=== PATIENT | female | born 1980 | race Caucasian/White ===

== ENCOUNTER 2016-06-10 23:23 | Emergency (ER) | payer OTHER ==
[2016-06-10 23:37] VITALS: BMI 22.5
[2016-06-10 23:41] VITALS: BP 132/80; PULSE 64; TEMP 99.7
--- NOTE | 2016-06-11 00:10 | ED PDOC ---
Arrival/HPI - General Chief Complaint: Cough, Cold, Congestion Time Seen by Provider: 06/10/16 23:43 Historian: Patient - History of Present Illness Narrative History of Present Illness (Text): 06/11/16 00:21 Patient reports 2 days of fever, chills, and bodyaches, states that he daughter is also sick with similar symptoms. Otherwise: (-) cough, (-) sore throat, (-) SOB, (-) chest pain, (-) N/V/D, (-) abdominal pain, (-) flank pain, (-) urinary symptoms, (-) recent travel, (-) sick contacts. PMD none Past Medical History - Provider Review Nursing Documentation Reviewed: Yes - Psychiatric Hx Substance Use: No Family/Social History - Physician Review Nursing Documentation Reviewed: Yes Family/Social History: No Known Family HX Smoking Status: no Hx Alcohol Use: No Hx Substance Use: No Allergies/Home Meds Allergies/Adverse Reactions: Allergies No Known Allergies Allergy (Verified 06/10/16 23:41) Review of Systems - Review of Systems Constitutional: Normal, Fatigue, Fevers. absent: Weight Change ENT: Normal. absent: Hearing Changes, Tinnitus, Rhinorrhea, Sinus Congestion Respiratory: Normal. absent: SOB, Cough Cardiovascular: Normal. absent: Chest Pain, Palpitations Gastrointestinal: absent: Normal, Abdominal Pain, Stool Changes Musculoskeletal: absent: Normal, Arthralgias, Back Pain, Neck Pain Physical Exam - Physical Exam Narrative Physical Exam (Text): 06/11/16 00:22 GENERAL APPEARANCE: Patient is awake, alert, oriented x 3, in no acute distress. SKIN: Warm, dry; (-) cyanosis, (-) rash. (-) Decubitus Ulcer EYES: (-) conjunctival pallor, (-) scleral icterus, (-) conjunctival hemorrhage. ENMT: Mucous membranes moist. TMs: (-) erythema. Airway patent: (-) stridor. Pharynx: (-) erythema, (-) exudate. NECK: (-) tenderness, (-) stiffness, (-) meningismus, (-) lymphadenopathy. CHEST AND RESPIRATORY: (-) accessory muscle use. Lungs: (-) rales, (-) rhonchi, (-) wheezes, (-) rub; breath sounds equal bilaterally. HEART AND CARDIOVASCULAR: (-) irregularity; (-) murmur, (-) gallop, (-) rub. ABDOMEN AND GI: Soft; (-) tenderness, (-) guarding; (-) organomegaly; (-) mass ; (-) CVA tenderness. EXTREMITIES: (-) deformity; (-) cellulitis, (-) lymphangitis; (-) subungual hemorrhage; (-) edema. NEURO AND PSYCH: Mental status as above; (-) focal findings. Vital Signs Temp Pulse Resp BP Pulse Ox 06/10/16 23:45 99.7 F H 64 18 132/80 99 06/10/16 23:37 99.7 F H 64 18 132/80 99 Medical Decision Making ED Course and Treatment: 06/11/16 00:06 35 yo F presents with 2 day h/o fever, chills and bodyaches, likely flu. Given tylenol po. Based on history and exam, plan will be for outpatient f/u with the clinic. Rx provided. Patient states she fully agrees with and understands discharge instructions. States that she agrees with the plan and disposition. Verbalized and repeated discharge instructions and plan. I have given the patient opportunity to ask any additional questions. Follow up with the clinic in 1-2 days without fail. Advised to take medication as prescribed. Return to the emergency room at any time for any new or worsening symptoms. - Medication Orders Current Medication Orders: Discontinued Medications Acetaminophen (Tylenol 325mg Tab) 975 mg PO STAT STA Stop: 06/11/16 00:12 - PA / SPECIAL CLASS WELDER / Resident Statement MD/DO has reviewed & agrees with the documentation as recorded. Disposition/Present on Arrival - Present on Arrival Any Indicators Present on Arrival: No History of DVT/PE: No History of Uncontrolled Diabetes: No Urinary Catheter: No History of Decub. Ulcer: No History Surgical Site Infection Following: None - Disposition Have Diagnosis and Disposition been Completed?: Yes Diagnosis: Viral illness Disposition: HOME/ ROUTINE Disposition Time: 00:08 Patient Plan: Discharge Condition: STABLE Discharge Instructions (ExitCare): Viral Syndrome (ED), Influenza (ED) Print Language: MALTESE Additional Instructions: Thank you for letting us take care of you today. You were treated for viral illness, likely flu. The emergency medical care you received today was directed at your acute symptoms. If you were prescribed any medication, please fill it and take as directed. It may take several days for your symptoms to resolve. Return to the Emergency Department if your symptoms worsen, do not improve, or if you have any other problems. Please contact the clinic in 2 days for re-evaluation and follow up. Bring any paperwork you were given at discharge with you along with any medications you are taking to your follow up visit. Our treatment cannot replace ongoing medical care by a primary care provider (PCP) outside of the emergency department. Thank you for allowing the [facility] team to be part of your care today. Prescriptions: Ibuprofen [Motrin Tab] 600 mg PO QID PRN #20 tab PRN Reason: Fever >100.4 F Referrals[place] [facility] [place] - Follow up with primary Forms: WORK NOTE
[2016-06-11 00:39] VITALS: RESP 16; O2SAT 98
== END 2016-06-11 00:11 | disposition home or self-care (01) ==
LOC: ED 23:23
DX: B34.9 Viral infection, unspecified (principal)

== ENCOUNTER 2016-08-21 10:36 | Emergency (ER) | payer OTHER ==
[2016-08-21 10:37] VITALS: BMI 22.5
[2016-08-21 10:51] VITALS: RESP 16; TEMP 98.9; O2SAT 98
[2016-08-21 12:16] LABS: PH,URINE 6.5 (4.7-8.0); URINE BILIRUBIN NEGATIVE (NEGATIVE); URINE BLOOD TRACE-LYSED (NEGATIVE); URINE GLUCOSE (UA) NEGATIVE (NEGATIVE); URINE KETONE NEGATIVE (NEGATIVE); URINE LEUKOCYTE ESTERASE SMALL Leu/uL (NEGATIVE); URINE PROTEIN NEGATIVE mg/dL (<30 mg/dL); URINE UROBILINOGEN 0.2 E.U./dL (<1 E.U./dL)
[2016-08-21 12:17] LABS: URINE APPEARANCE CLEAR (CLEAR); URINE COLOR YELLOW (YELLOW)
[2016-08-21 12:28] LABS: URINE BACTERIA SMALL (NEG); URINE RBC 0 - 2 /hpf (0-2)
--- NOTE | 2016-08-21 12:33 | ED PDOC ---
Arrival/HPI - General Chief Complaint: Fever Time Seen by Provider: 08/21/16 11:27 Historian: Patient - History of Present Illness Narrative History of Present Illness (Text): 08/21/16 12:30 35yo female with PMHx of hypertension present with complaint of malaise, generalized body ache and fever. she notes tactile fever. Did not take any medication. Denies any focal somatic complaint. Denies abdominal pain, nausea, vomiting, diarrhea, urinary symptoms, URI symptoms, any other complaint. Past Medical History - Provider Review Nursing Documentation Reviewed: Yes - Psychiatric Hx Psychophysiologic Disorder: No Hx Substance Use: No Family/Social History - Physician Review Nursing Documentation Reviewed: Yes Family/Social History: Unknown Family HX Smoking Status: Never Smoked Hx Alcohol Use: No Hx Substance Use: No Allergies/Home Meds Allergies/Adverse Reactions: Allergies No Known Allergies Allergy (Verified 08/21/16 10:46) Review of Systems - Physician Review All systems were reviewed & negative as marked: Yes - Review of Systems Constitutional: Fatigue Eyes: Normal ENT: Normal Respiratory: Normal Cardiovascular: Normal Gastrointestinal: Normal Genitourinary Female: Normal Musculoskeletal: Myalgias Skin: Normal Neurological: Normal Endocrine: Normal Hemo/Lymphatic: Normal Psychiatric: Normal Physical Exam Vital Signs Reviewed: Yes Vital Signs Temp Pulse Resp BP Pulse Ox 08/21/16 10:46 98.9 F 102 H 16 143/104 H 98 Temperature: Afebrile Blood Pressure: Normal Pulse: Regular Respiratory Rate: Normal Appearance: Positive for: Well-Appearing, Non-Toxic, Comfortable Pain Distress: None Mental Status: Positive for: Alert and Oriented X 3 - Systems Exam Head: Present: Atraumatic, Normocephalic Pupils: Present: PERRL Extroacular Muscles: Present: EOMI Conjunctiva: Present: Normal Mouth: Present: Moist Mucous Membranes Neck: Present: Normal Range of Motion Respiratory/Chest: Present: Clear to Auscultation, Good Air Exchange. No: Respiratory Distress, Accessory Muscle Use Cardiovascular: Present: Regular Rate and Rhythm, Normal S1, S2. No: Murmurs Abdomen: Present: Normal Bowel Sounds. No: Tenderness, Distention, Peritoneal Signs Back: Present: Normal Inspection Upper Extremity: Present: Normal Inspection. No: Cyanosis, Edema Lower Extremity: Present: Normal Inspection. No: Edema Neurological: Present: GCS=15, CN II-XII Intact, Speech Normal Skin: Present: Warm, Dry, Normal Color. No: Rashes Psychiatric: Present: Alert, Oriented x 3, Normal Insight, Normal Concentration Medical Decision Making - Lab Interpretations Lab Results: Lab Results 08/21/16 11:58: Urine Color Yellow, Urine Appearance Clear, Urine pH 6.5, Ur Specific [place] <= 1.005, Urine Protein Negative, Urine Glucose (UA) Negative, Urine Ketones Negative, Urine Blood Trace-lysed H, Urine Nitrate Negative, Urine Bilirubin Negative, Urine Urobilinogen 0.2, Ur Leukocyte Esterase Small H , Urine RBC 0 - 2, Urine WBC 2 - 5, Ur Epithelial Cells 4 - 5, Urine Bacteria Small - Medication Orders Current Medication Orders: Discontinued Medications Ibuprofen (Motrin Tab) 600 mg PO STAT STA Stop: 08/21/16 11:51 Last Admin: 08/21/16 12:16 Dose: 600 mg Disposition/Present on Arrival - Present on Arrival Any Indicators Present on Arrival: No History of DVT/PE: No History of Uncontrolled Diabetes: No Urinary Catheter: No History of Decub. Ulcer: No History Surgical Site Infection Following: None - Disposition Have Diagnosis and Disposition been Completed?: Yes Diagnosis: UTI (urinary tract infection), Malaise Disposition: HOME/ ROUTINE Disposition Time: 12:35 Patient Plan: Discharge Condition: STABLE Discharge Instructions (ExitCare): Urinary Tract Infection in Women (ED) Additional Instructions: Follow up with your Doctor/clinic Drink plenty of fluid and rest Return to ED for any new or worsening symptoms Prescriptions: Ibuprofen [Motrin Tab] 600 mg PO Q6 #20 tab Nitrofurantoin Macrocrystals [Macrobid] 100 mg PO BID #14 cap Referrals: Esther Brady, [Primary Care Provider] - Follow up with primary
[2016-08-21 14:11] VITALS: BP 138/89; PULSE 97
== END 2016-08-21 13:00 | disposition home or self-care (01) ==
LOC: ED 10:36
DX: N39.0 Urinary tract infection, site not specified (principal); R53.81 Other malaise